=== PATIENT | female | born 1945 | race Caucasian/White ===

== ENCOUNTER 2021-01-28 07:44 | Day surgery (SDC) | payer BC, SELFPAY ==
[~2021-01-28] VITALS: Ht 172.7 cm; Wt 91.6 kg
[2021-01-28] MEDS ORDERED: ETOMIDATE 20 MG/ 10 ML VIAL (AMIDATE) IVP ONE (09:44)
[2021-01-28] MEDS ORDERED: BACITRACIN 1 GM OINT TP ONE (09:44)
[2021-01-28] MEDS ORDERED: fentaNYL CITRATE/PF 100 MCG/2 ML AMP IVP ONE (09:44)
[2021-01-28] MEDS ORDERED: KETOROLAC TROMETHAMINE 30 MG VIAL IVP ONE (09:44)
[2021-01-28] MEDS ORDERED: WATER FOR IRRIGATION,STERILE 1,000 ML IRRIG.SOLN IR ONE (09:44)
[2021-01-28] MEDS ORDERED: GLYCOPYRROLATE 0.2 MG/ML VIAL IJ ONE (09:44)
[2021-01-28] MEDS ORDERED: PHENYLEPHRINE HCL 10 MG/ML VIAL (NEOSYNEPHRINE) IV ONE (09:44)
[2021-01-28] MEDS ORDERED: DEXAMETHASONE SOD PHOSPHATE 4 MG/ML VIAL IVP ONE (09:44)
[2021-01-28] MEDS ORDERED: hydrALAZINE HCL 20 MG/ML VIAL IVP ONE (09:44)
[2021-01-28] MEDS ORDERED: LIDOCAINE/EPI 1% 1:100000 20 ML VIAL INJ ONE (09:44)
[2021-01-28] MEDS ORDERED: SEVOFLURANE 15 MIN GAS INH ONE (09:44)
[2021-01-28] MEDS ORDERED: NS 1000 ML IV.SOLN IV ONE (09:44)
[2021-01-28] MEDS ORDERED: ePHEDrine sulfate 50 MG/ML VIAL IVP ONE (09:44)
[2021-01-28] MEDS ORDERED: METOCLOPRAMIDE HCL 10 MG/2 ML VIAL IVP ONE (09:44)
[2021-01-28] MEDS ORDERED: PROPOFOL 200MG/ 20ML VIAL (DIPRIVAN) IV ONE (09:44)
[2021-01-28] MEDS ORDERED: SUCCINYLCHOLINE CHLORIDE 20 MG/ML(QUELICIN) IVP ONE (09:44)
[2021-01-28] MEDS ORDERED: ROCURONIUM BROMIDE 10 MG/ML (ZEMURON) IV ONE (09:44)
[2021-01-28] MEDS ORDERED: ONDANSETRON HCL 4 MG/2 ML VIAL IVP ONE (09:44)
[2021-01-28] MEDS ORDERED: LR 1,000 ML IV.SOLN IV ONE (09:44)
[2021-01-28] MEDS ORDERED: OXYCODONE/ACETAMINOPHEN 5-325 TABLET PO PRN (11:45)
[2021-01-28] MEDS ORDERED: fentaNYL CITRATE/PF 100 MCG/2 ML AMP IVP PRN (11:45)
[2021-01-28] MEDS ORDERED: LR 1,000 ML IV SCH (11:45)
[2021-01-28] MEDS ORDERED: MEPERIDINE HCL/PF 25 MG/ML DISP.SYRIN IVP PRN (11:45)
[2021-01-28] MEDS ORDERED: ACETAMINOPHEN 500 MG TABLET PO PRN (13:00)
[2021-01-28] MEDS ORDERED: HYDROcodone/ACETAMIN 5-325 MG TAB (NORCO/ VICODIN) PO PRN (13:00)
[2021-01-28] MEDS ORDERED: ONDANSETRON 4 MG ODT TAB PO PRN (13:00)
[2021-01-28] MEDS ORDERED: ONDANSETRON HCL 4 MG/2 ML VIAL IVP PRN (13:00)
[2021-01-28] MEDS ORDERED: OXYMETAZOLINE HCL 0.05% NASAL SPRAY NS PRN (13:00)
[2021-01-28 13:30] VITALS: BP_SYST 118
== END 2021-01-28 14:45 | disposition home or self-care (01) ==
LOC: SDS 07:44 → SMU 07:45 → SDS 14:45
PROVIDERS: ATTEND Otolaryngology
DX: J32.8 Other chronic sinusitis (principal); J34.89 Other specified disorders of nose and nasal sinuses; I10 Essential (primary) hypertension; E11.40 Type 2 diabetes mellitus with diabetic neuropathy, unspecified; J45.909 Unspecified asthma, uncomplicated; E03.9 Hypothyroidism, unspecified; Z98.890 Other specified postprocedural states; Z79.899 Other long term (current) drug therapy; Z20.822 Contact with and (suspected) exposure to COVID-19
CPT/HCPCS: 31259; 31267; 31296; 82962; 88305; A4649; C1726; J0330; J0360; J1100; J1885; J2370; J2405; J2704; J2765; J3010; J3490 ×2; J7030; J7120; U0003; 88313; 88341; 88342; 88360